=== PATIENT | female | born 1985 | race Caucasian/White ===

== ENCOUNTER 2023-11-12 08:35 | Emergency (ER) | payer MEDICAID ==
[~2023-11-12] VITALS: Ht 157.5 cm; Wt 54.4 kg
[2023-11-12 08:45] VITALS: BP_SYST 131; PULSE 63; RESP 18; TEMP 97.7; O2SAT 98
[2023-11-12] MEDS ORDERED: ONDANSETRON 4 MG ODT TAB PO ONE (09:00)
[2023-11-12] MEDS ORDERED: KETOROLAC TROMETHAMINE 60 MG/2 ML VIAL IM ONE (09:00)
[2023-11-12] MEDS ORDERED: MORPHINE 4 MG INJ. 4 MG/ML VIAL IM ONE (09:00)
[2023-11-12] MEDS ORDERED: TRAM50TA2 PO (09:43)
[2023-11-12 10:08] VITALS: BP_SYST 131; PULSE 63; RESP 18; TEMP 97.7; O2SAT 98
== END 2023-11-12 10:07 | disposition home or self-care (01) ==
LOC: SED 08:35
DX: G89.29 Other chronic pain (principal); M54.50 Low back pain, unspecified; Z79.899 Other long term (current) drug therapy
CPT/HCPCS: 99283; 96374; Q0162; J1885